=== PATIENT | male | born 1960 | race Two or more races ===

== ENCOUNTER 2019-06-24 16:06 | Emergency (ER) | payer SELFPAY ==
[~2019-06-24] VITALS: Ht 180.3 cm; Wt 102.0 kg
[2019-06-24] MEDS ORDERED: ONDANSETRON HCL 4MG/2ML INJ IV STA (17:05)
[2019-06-24] MEDS ORDERED: MORPHINE SULFATE 4 MG/ML CPJ (NOT FOR IM USE) IV STA (17:05)
[2019-06-24 17:42] LABS: BASOPHILS % 0.8 % (0.0-2.0); EOSINOPHILS % 0.2 % (0.0-5.0); HEMATOCRIT. 35.8 % (42.0-52.0); HEMOGLOBIN. 12.3 g/dL (14.0-18.0); MEAN CORPUSCULAR HEMOGLOBIN 30.8 pg (28.0-32.0); MEAN CORPUSCULAR VOLUME 89.5 fL (80.0-94.0); PLATELET 229 x1000/uL (130-400)
[2019-06-24 17:45] LABS: CHLORIDE 106 mEq/L (98-107)
[2019-06-24 17:49] LABS: INR 1.1; PARTIAL THROMBOPLASTIN TIME 34.8 sec (23.4-31.0); PROTHROMBIN TIME 11.4 sec (9.6-11.0)
[2019-06-24] MEDS ORDERED: IOHEXOL-300 100 ML BOTTLE ONE (19:10)
[2019-06-24 23:26] VITALS: BP 141/73
== END 2019-06-24 23:40 | disposition short-term general hospital (02) ==
LOC: ER 16:06
DX: S22.42XA Multiple fractures of ribs, left side, initial encounter for closed fracture (principal); R10.12 Left upper quadrant pain; R10.11 Right upper quadrant pain; M10.9 Gout, unspecified; E11.9 Type 2 diabetes mellitus without complications; Z86.718 Personal history of other venous thrombosis and embolism; W01.0XXA Fall on same level from slipping, tripping and stumbling without subsequent striking against object, initial encounter; Y93.E1 Activity, personal bathing and showering; Y92.89 Other specified places as the place of occurrence of the external cause; Y99.8 Other external cause status
CPT/HCPCS: 36415; 71045; 71260; 74177; 80053; 83690; 83880; 84484; 84550; 85025; 85610; 85730; 93005; 96374; 96375; 99291; J2270; J2405; Q9967